=== PATIENT | female | born 1980 | race Caucasian/White ===

== ENCOUNTER 2021-02-14 10:10 | Emergency (ER) | payer OTHER ==
[2021-02-14 10:15] VITALS: RESP 18; TEMP 98
[2021-02-14] MEDS ORDERED: HYDROmorphone 1 MG/ML 1 ML SYRINGE IM STA ×2 (10:29→11:58)
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
--- NOTE | 2021-02-14 11:52 | XR ---
EXAMINATION TYPE: XR shoulder complete RT DATE OF EXAM: 02/14/2021 COMPARISON: NONE HISTORY: Pain TECHNIQUE: Three views are submitted. FINDINGS: The osseous structures are intact. There is no acute fracture or dislocation. The AC joint is maint ained. Diffuse osteopenia. IMPRESSION: 1. No acute process.
--- NOTE | 2021-02-14 11:56 | XR ---
EXAMINATION TYPE: XR ribs RT w pa chest xray DATE OF EXAM: 02/14/2021 COMPARISON: NONE TECHNIQUE: PA view of the chest and 4 views of the right ribs are submitted. HISTORY: Pain FINDINGS: The lungs are clear and there is no pneumothorax, pleural effusion, or focal pneumonia. Heart size normal. No overt failure. Rib cage appears intact. IMPRESSION: 1. No acute process.
--- NOTE | 2021-02-14 11:58 | XR ---
EXAMINATION TYPE: XR Hip RT and AP Pelvis DATE OF EXAM: 02/14/2021 CLINICAL HISTORY: Pelvic and right hip pain. TECHNIQUE: A single AP view of the pelvis is obtained. Two views of the right hip are obtained. COMPARISON: None. FINDINGS: There is no acute fracture/dislocation evident in the pelvis. Total right hip arthroplasty is in xuan ce. The hip and sacroiliac joints appear symmetric and unremarkable. The overlying soft tissue appea rs unremarkable.Two views of right hip show no acute fracture or dislocation. No focal lytic or scle rotic lesion seen in the proximal right femur. The overlying soft tissue is unremarkable. IMPRESSION: There is no acute fracture or dislocation in the pelvis or right hip.
[2021-02-14 12:00] VITALS: BP 102/68; PULSE 67
[2021-02-14] MEDS: ACET/COD 300 MG/30 MG STARTER PACK 6 TAB BTL PO STA ×2 (12:08→12:15)
[2021-02-14] MEDS ORDERED: traMADol 50 MG STARTER PACK 3 TAB BTL PO STA (12:14)
== END 2021-02-14 12:23 | disposition home or self-care (01) ==
LOC: EC 10:10
DX: S70.01XA Contusion of right hip, initial encounter (principal); S40.011A Contusion of right shoulder, initial encounter; F17.200 Nicotine dependence, unspecified, uncomplicated; Z79.1 Long term (current) use of non-steroidal anti-inflammatories (NSAID); Z79.899 Other long term (current) drug therapy; W11.XXXA Fall on and from ladder, initial encounter
CPT/HCPCS: 71101; 73502; 73030; 99284; 96372; J1170

== ENCOUNTER 2021-02-15 10:10 | Emergency (ER) | payer OTHER ==
[2021-02-15 10:15] VITALS: BP 102/66; PULSE 83; RESP 20; TEMP 98.3
[2021-02-15] MEDS ORDERED: MORPHINE SULFATE 4 MG/ML SYRINGE IM STA (10:30)
--- NOTE | 2021-02-15 10:36 | ED ---
General Adult HPI - General Chief complaint: Back Pain/Injury Stated complaint: revisit-fall Time Seen by Provider: 02/15/21 10:17 Source: patient Mode of arrival: ambulatory Limitations: no limitations - History of Present Illness Initial comments: 41-year-old female with a past medical history of right hip prosthesis presents to the emergency room for chief complaint of fall. Patient fell off of a ladder yesterday onto grass. She states her head was at about 10 feet. Patient states she landed on her right side. Patient states that she did present yesterday and had x-rays. However today she states she feels more sore and stiff. States she is now having left-sided neck pain. States that now her right thigh is hurting as well. States she is ambulatory. Patient states her chest is sore.Patient has no other complaints at this time including shortness of breath, chest pain, abdominal pain, nausea or vomiting, headache, or visual changes. - Related Data Home Medications Medication Instructions Recorded Confirmed Ascorbic Acid [Vitamin C] 1,000 mg PO DAILY 02/14/21 02/15/21 Cholecalciferol [Vitamin D3 (25 25 mcg PO DAILY 02/14/21 02/15/21 Mcg = 1000 Iu)] Omeprazole 20 mg PO DAILY 02/14/21 02/15/21 Previous Rx's Medication Instructions Recorded Ibuprofen [Motrin] 600 mg PO Q8HR PRN #30 tab 02/14/21 Cyclobenzaprine [Flexeril] 10 mg PO TID #14 tab 02/15/21 Allergies Allergy/AdvReac Type Severity Reaction Status Date / Time No Known Allergies Allergy Verified 02/15/21 11:44 Review of Systems ROS Statement: Those systems with pertinent positive or pertinent negative responses have been documented in the HPI. ROS Other: All systems not noted in ROS Statement are negative. Past Medical History Past Medical History: No Reported History History of Any Multi-Drug Resistant Organisms: None Reported Past Surgical History: Orthopedic Surgery Additional Past Surgical History / Comment(s): R hip Past Psychological History: No Psychological Hx Reported Smoking Status: Current every day smoker Past Alcohol Use History: None Reported Past Drug Use History: None Reported General Exam Limitations: no limitations General appearance: alert, in no apparent distress Head exam: Present: atraumatic, normocephalic, normal inspection Eye exam: Present: normal appearance, PERRL, EOMI. Absent: scleral icterus, conjunctival injection, periorbital swelling ENT exam: Present: normal exam, mucous membranes moist Neck exam: Present: normal inspection, full ROM. Absent: tenderness, meningismus, lymphadenopathy Respiratory exam: Present: normal lung sounds bilaterally. Absent: respiratory distress, wheezes, rales, rhonchi, stridor Cardiovascular Exam: Present: regular rate, normal rhythm, normal heart sounds. Absent: systolic murmur, diastolic murmur, rubs, gallop, clicks GI/Abdominal exam: Present: soft, normal bowel sounds. Absent: distended, tenderness, guarding, rebound, rigid Extremities exam: Present: full ROM, tenderness (Minimal generalized tenderness to the right femur), normal capillary refill (Capillary refill less than 2 seconds in the right lower extremity) Course Vital Signs 02/15/21 10:13 Temperature 98.3 F Pulse Rate 83 Respiratory 20 Rate Blood Pressure 102/66 O2 Sat by Pulse 100 Oximetry Medical Decision Making - Medical Decision Making CT brain is negative. CT cervical spine shows no acute process however there is mild superior endplate spurring, consider C3 radicular symptoms. These are not clinically evident for patient at this time. X-ray of the right femur showed postoperative changes. CXR shows no acute process.Urinalysis does not show any evidence of gross hematuria. She was given pain medication. At this time patient will be given a muscle relaxer for home. She will follow-up with her doctor. She'll return for any worsening symptoms. - Lab Data Lab Results 02/15/21 Range/Units 11:37 Urine Color Light Yellow Urine Appearance Cloudy H (Clear) Urine pH 7.0 (5.0-8.0) Ur Specific [place] 1.016 (1.001-1.035) Urine Protein Negative (Negative) Urine Glucose (UA) Negative (Negative) Urine Ketones Negative (Negative) Urine Blood Negative (Negative) Urine Nitrite Negative (Negative) Urine Bilirubin Negative (Negative) Urine Urobilinogen <2.0 (<2.0) mg/dL Ur Leukocyte Esterase Negative (Negative) Urine RBC <1 (0-5) /hpf Urine WBC 1 (0-5) /hpf Ur Squamous Epith Cells 2 (0-4) /hpf Amorphous Sediment Rare H (None) /hpf Urine Bacteria Occasional H (None) /hpf Urine Mucus Rare H (None) /hpf Disposition Clinical Impression: Fall, Cervical strain Disposition: HOME SELF-CARE Condition: Good Instructions (If sedation given, give patient instructions): Cervical Strain (ED) Additional Instructions: Please take pain medication as directed. Follow up with your doctor in one to 2 days. Return to the emergency room for any worsening symptoms. Prescriptions: Cyclobenzaprine [Flexeril] 10 mg PO TID #14 tab Is patient prescribed a controlled substance at d/c from ED?: No Referrals: Sg Linares DO [Primary Care Provider] - 1-2 days Time of Disposition: 12:13
--- NOTE | 2021-02-15 11:31 | CT ---
EXAMINATION TYPE: CT brain john wo con DATE OF EXAM: 02/15/2021 COMPARISON: None HISTORY: Fall yesterday. Continued Left shoulder and neck pain. CT DLP: 1316.6 mGycm, Automated exposure control for dose reduction was used. CONTRAST: Patient injected with 0 mL of Isovue 300. CT of the brain is performed utilizing 3 mm thick sections through the posterior fossa and 3 mm thick sections through the remaining calvarium. Study is performed within 24 hours of arrival to the hospital. No abnormal hyperdensity is present to suggest an acute intracranial hemorrhage. No mass lesion is evident. No acute infarcts are evident. Ventricles and sulci are appropriate for the patient age. Paranasal sinuses and mastoid air cells within the [id number] are clear. IMPRESSIONS: 1. Normal CT brain. CT cervical spine. COMPARISON: None CT of the cervical spine is performed in the axial plane at 2 mm thick sections. Reconstructed image s in the coronal, and sagittal plane are reviewed on the computer. No acute fractures are evident. Vertebral body alignment is normal. Disc heights are preserved. Vertebral body heights are preserved. No spinal canal stenosis is evident. Note is made of some mild posterior right endplate spurring at i nferior endplate of C3 without significant thecal sac compression. Consider right C3 radicular sympto ms some mild endplate spurring from the inferior endplate of C4 on the right as well appears somewhat smaller than at C3 No neural foraminal stenosis is evident. IMPRESSIONS: 1. Mild superior endplate spurring. Consider right C3 radicular symptoms. 2. Cervical spine otherwise appears normal. 3. No acute osseous
--- NOTE | 2021-02-15 11:32 | XR ---
EXAMINATION TYPE: XR femur RT DATE OF EXAM: 02/15/2021 CLINICAL HISTORY: Pain TECHNIQUE: Two views of the right femur are obtained. COMPARISON: None FINDINGS: There is no acute fracture or dislocation seen in the right femur. Postsurgical changes ar e noted. Diffuse osteopenia. Arthropathy of the knee joint. No acute fracture. IMPRESSION: 1. Postoperative change.
--- NOTE | 2021-02-15 11:33 | XR ---
EXAMINATION TYPE: XR chest 1V DATE OF EXAM: 02/15/2021 COMPARISON: 02/14/2021 HISTORY: Pain TECHNIQUE: Single frontal view of the chest is obtained. FINDINGS: There is no focal air space opacity, pleural effusion, or pneumothorax seen. The cardiac silhouette size is within normal limits. The osseous structures are intact. IMPRESSION: No acute process.
[2021-02-15] MEDS ORDERED: KETOROLAC 15 MG/ML 1 ML VIAL IM STA (11:34)
[2021-02-15 12:02] LABS: Amorphous Sediment,Urine Rare /hpf; Appearance,Urine Cloudy (Clear); Bacteria,Urine Occasional /hpf; Bilirubin,Urine Negative (Negative); Blood,Urine Negative (Negative); Color,Urine Light Yellow; Glucose,Urine (UA) Negative (Negative); Ketones,Urine Negative (Negative); Leukocyte Esterase,Urine Negative (Negative); Mucus,Urine Rare /hpf; Nitrite,Urine Negative (Negative); Protein,Urine Negative (Negative); RBC,Urine <1 /hpf (0-5); Specific Gravity,Urine 1.016 (1.001-1.035); Squamous Epithelial Cell,Urine 2 /hpf (0-4); Urobilinogen,Urine <2.0 mg/dL (<2.0); WBC,Urine 1 /hpf (0-5)
[2021-02-15] MEDS ORDERED: ACET/COD 300 MG/30 MG STARTER PACK 6 TAB BTL PO STA (12:20)
== END 2021-02-15 12:38 | disposition home or self-care (01) ==
LOC: EC 10:10
DX: S16.1XXA Strain of muscle, fascia and tendon at neck level, initial encounter (principal); M79.652 Pain in left thigh; F17.200 Nicotine dependence, unspecified, uncomplicated; Z79.1 Long term (current) use of non-steroidal anti-inflammatories (NSAID); W11.XXXA Fall on and from ladder, initial encounter
CPT/HCPCS: 81001; 73552; 71045; 72125; 70450; 99284; 96372 ×2; J2270; J1885